=== PATIENT | female | born 1945 | race Caucasian/White ===

== ENCOUNTER 2021-10-26 10:51 | Emergency (ER) | payer MEDICARE, MEDICAID ==
[2021-10-26] MEDS ORDERED: NYSTOP POWDER15 GM TP (11:39)
[2021-10-26] MEDS ORDERED: ATORVASTATIN CA80 MG PO (11:39)
[2021-10-26] MEDS ORDERED: MUPIROCIN2% TP (11:40)
[2021-10-26] MEDS ORDERED: IPRATROPIUM BROM3 M1 IH (11:40)
[2021-10-26] MEDS ORDERED: LASIX 80MG TABL80 MG (11:40)
[2021-10-26] MEDS ORDERED: SYMBICORT1 AE2 IH (11:40)
[2021-10-26] MEDS ORDERED: ATHLETE'S FOOT1% TP (11:40)
[2021-10-26] MEDS ORDERED: METOPROLOL SUCC50 M1 PO (11:41)
[2021-10-26] MEDS ORDERED: GLUCOPHAGE PO (11:41)
[2021-10-26] MEDS ORDERED: SPIRIVA RE2.5 MCG/Ac IH (11:42)
[2021-10-26] MEDS ORDERED: PRILOSEC 20MG20 MG PO (11:42)
[2021-10-26] MEDS ORDERED: PEG335017 GM/Dose PO (11:42)
[2021-10-26] MEDS ORDERED: STIMULANT LAXA1 EACH PO (11:42)
[2021-10-26] MEDS ORDERED: VITAMIN B12 1541 TAB PO (11:42)
[2021-10-26] MEDS ORDERED: ACETAMINOPHEN325 M1 (11:43)
[2021-10-26] MEDS ORDERED: XARELTO20 MG PO (11:43)
[2021-10-26 11:59] LABS: ALBUMIN 4.1 g/dL (3.4-4.8); POTASSIUM 4.2 mmol/L (3.5-5.1)
[2021-10-26 12:00] LABS: CALCIUM 9.7 mg/dL (8.3-10.5)
[2021-10-26 12:02] LABS: TOTAL PROTEIN 7.5 g/dL (6.2-8.1)
[2021-10-26 12:03] LABS: TOTAL BILIRUBIN 1.1 mg/dL (0.2-1.2)
[2021-10-26 12:04] LABS: BASO # 0.05 K/mm3 (0.02-0.10); EOS # 0.15 K/mm3 (0.04-0.40); EOS % 1.6 % (1.0-5.0); HEMOGLOBIN 11.3 g/dL (12.5-16.0); LYMPH# 1.81 K/mm3 (1.50-4.00); MEAN CELL VOLUME 92 fl (78-100); MEAN CORPUSCULAR HEMOGLOBIN 29 pg (27-31); MEAN CORPUSCULAR HGB CONC 31 g/dL (33-37); MEAN PLATELET VOLUME 9.6 fl (7.4-10.4); MONO # 0.49 K/mm3 (0.20-0.80); NEU # 6.62 K/mm3 (1.40-6.50); PLATELET COUNT 425 K/mm3 (130-400); RED BLOOD COUNT 3.91 M/mm3 (4.10-5.30); RED CELL DISTRIBUTION WIDTH 16.8 % (11.5-14.5); WHITE BLOOD COUNT 9.2 K/mm3 (4.8-10.8)
[2021-10-26 12:38] LABS: PH-URINE 7.5 (5.0 - 8.0); URINE APPEARANCE CLOUDY; URINE BILIRUBIN NEGATIVE (NEGATIVE); URINE BLOOD TRACE (NEGATIVE); URINE COLOR LIGHT YELLOW; URINE GLUCOSE NEGATIVE (NEGATIVE); URINE KETONE NEGATIVE (NEGATIVE); URINE LEUKOCYTE ESTERASE 1+ (NEGATIVE); URINE NITRATE NEGATIVE (NEGATIVE); URINE PROTEIN(semi-quant) TRACE (NEGATIVE); URINE UROBILINOGEN NORMAL (NORMAL)
[2021-10-26 15:38] VITALS: BP 112/89
== END 2021-10-26 15:39 | disposition home or self-care (01) ==
LOC: ED 10:51
PROVIDERS: Physician Assistant
DX: B37.49 Other urogenital candidiasis (principal); L03.311 Cellulitis of abdominal wall; Z28.310 Unvaccinated for COVID-19
CPT/HCPCS: J0696; J7040

== ENCOUNTER → 2021-11-02 | Outpatient (CLI) | payer MEDICARE, MEDICAID ==
[~2021-11-02] MED LIST: ACETAMINOPHEN325 M1; ATHLETE'S FOOT1% TP; ATORVASTATIN CA80 MG PO; GLUCOPHAGE PO; IPRATROPIUM BROM3 M1 IH; LASIX 80MG TABL80 MG; METOPROLOL SUCC50 M1 PO; MUPIROCIN2% TP; NYSTOP POWDER15 GM TP; PEG335017 GM/Dose PO; PRILOSEC 20MG20 MG PO; SPIRIVA RE2.5 MCG/Ac IH; STIMULANT LAXA1 EACH PO; SYMBICORT1 AE2 IH; VITAMIN B12 1541 TAB PO; XARELTO20 MG PO
== END ==
LOC: LAB 16:16
DX: K64.4 Residual hemorrhoidal skin tags (principal); Z87.440 Personal history of urinary (tract) infections

== ENCOUNTER → 2022-01-23 | Outpatient (CLI) | payer MEDICARE, MEDICAID | LOC: RAD 10:30 | DX: I50.9 Heart failure, unspecified (principal); Z95.2 Presence of prosthetic heart valve ==

== ENCOUNTER 2022-01-31 15:23 | Observation (INO) | payer MEDICARE, MEDICAID ==
[~2022-01-31] VITALS: Ht 167.6 cm; Wt 100.7 kg
[~2022-01-31 15:23] MED LIST changes: -LASIX 80MG TABL80 MG
[2022-01-31 15:54] LABS: BASO # 0.03 K/mm3 (0.02-0.10); EOS # 0.16 K/mm3 (0.04-0.40); EOS % 1.8 % (1.0-5.0); HEMATOCRIT 35.5 % (37.0-47.0); LYMPH# 1.88 K/mm3 (1.50-4.00); MEAN CELL VOLUME 89 fl (78-100); MEAN CORPUSCULAR HEMOGLOBIN 28 pg (27-31); MEAN CORPUSCULAR HGB CONC 31 g/dL (33-37); NEU # 6.16 K/mm3 (1.40-6.50); PLATELET COUNT 219 K/mm3 (130-400); RED BLOOD COUNT 3.97 M/mm3 (4.10-5.30); RED CELL DISTRIBUTION WIDTH 18.2 % (11.5-14.5); WHITE BLOOD COUNT 8.8 K/mm3 (4.8-10.8)
[2022-01-31 16:05] LABS: ALBUMIN 3.9 g/dL (3.4-4.8); POTASSIUM 4.2 mmol/L (3.5-5.1); SODIUM 144 mmol/L (136-145)
[2022-01-31 16:06] LABS: CALCIUM 9.1 mg/dL (8.3-10.5)
[2022-01-31 16:07] LABS: GLUCOSE 107 mg/dL (65-105)
[2022-01-31 16:08] LABS: TOTAL PROTEIN 7.5 g/dL (6.2-8.1)
[2022-01-31 16:09] LABS: CARBON DIOXIDE 21 mmol/L (23-31); TOTAL BILIRUBIN 0.6 mg/dL (0.2-1.2)
[2022-01-31 16:13] LABS: AST-SGOT 22 U/L (5-34)
[2022-01-31 16:14] LABS: ALT/SGPT 7 U/L (0-55)
[2022-01-31 16:20] LABS: D-DIMER 1.69 mg/L FEU (0.15-0.50); TROPONIN-I < 0.030 ng/mL (<0.030)
[2022-01-31] MEDS ORDERED: LEADER MELATONIN5 MG PO (16:44)
[2022-01-31] MEDS ORDERED: POTASSIUM CH2 MEQ/ML PO (16:46)
[2022-01-31 17:05] LABS: ERYTHROCYTE SEDIMENTATION RATE 69 mm/hr (0-30)
[2022-01-31 17:05] LABS: URINE APPEARANCE HAZY; URINE BILIRUBIN NEGATIVE (NEGATIVE); URINE BLOOD 250 ery/uL (NEGATIVE); URINE COLOR YELLOW; URINE GLUCOSE NEGATIVE (NEGATIVE); URINE KETONE NEGATIVE (NEGATIVE); URINE LEUKOCYTE ESTERASE 2+ (NEGATIVE); URINE NITRATE NEGATIVE (NEGATIVE); URINE PROTEIN(semi-quant) 1+ (NEGATIVE); URINE UROBILINOGEN NORMAL (NORMAL)
[2022-01-31 17:06] LABS: URINE MUCUS PRESENT (NOT PRESENT); URINE WBC >50 /hpf (0-3)
[2022-01-31 18:00] VITALS: BP 113/86
[2022-01-31] MEDS ORDERED: LASIX40 M1 PO (18:14)
[2022-01-31] MEDS ORDERED: LASIX 80MG TABL80 MG PO (18:14)
[2022-01-31 21:48] VITALS: BP 121/50
[2022-02-01 06:19] VITALS: BP 104/50
[2022-02-01 07:05] LABS: BASO # 0.04 K/mm3 (0.02-0.10); EOS # 0.17 K/mm3 (0.04-0.40); EOS % 2.6 % (1.0-5.0); HEMATOCRIT 32.2 % (37.0-47.0); LYMPH# 1.86 K/mm3 (1.50-4.00); MEAN CELL VOLUME 89 fl (78-100); MEAN CORPUSCULAR HEMOGLOBIN 28 pg (27-31); MEAN CORPUSCULAR HGB CONC 31 g/dL (33-37); MEAN PLATELET VOLUME 10.5 fl (7.4-10.4); MONO # 0.44 K/mm3 (0.20-0.80); NEU # 4.12 K/mm3 (1.40-6.50); PLATELET COUNT 239 K/mm3 (130-400); RED BLOOD COUNT 3.61 M/mm3 (4.10-5.30); RED CELL DISTRIBUTION WIDTH 18.2 % (11.5-14.5); WHITE BLOOD COUNT 6.7 K/mm3 (4.8-10.8)
[2022-02-01 07:12] LABS: ALBUMIN 3.5 g/dL (3.4-4.8)
[2022-02-01 07:13] LABS: POTASSIUM 3.8 mmol/L (3.5-5.1); SODIUM 143 mmol/L (136-145)
[2022-02-01 07:14] LABS: CALCIUM 8.8 mg/dL (8.3-10.5)
[2022-02-01 07:15] LABS: GLUCOSE 101 mg/dL (65-105); TOTAL PROTEIN 6.6 g/dL (6.2-8.1)
[2022-02-01 07:16] LABS: CARBON DIOXIDE 24 mmol/L (23-31)
[2022-02-01 07:17] LABS: TOTAL BILIRUBIN 0.7 mg/dL (0.2-1.2)
[2022-02-01 07:20] LABS: AST-SGOT 15 U/L (5-34)
[2022-02-01 07:38] LABS: ALT/SGPT < 6 U/L (0-55)
[2022-02-01 09:20] VITALS: BP 151/74
[2022-02-01] MEDS ORDERED: CEPHALEXIN500 M2 PO (10:23)
== END 2022-02-01 11:38 ==
LOC: ED 15:23 → MED/SURG 17:33
PROVIDERS: ADMIT Physician Assistant
DX: U07.1 COVID-19 (principal); N39.0 Urinary tract infection, site not specified; I48.91 Unspecified atrial fibrillation; I11.0 Hypertensive heart disease with heart failure; J44.9 Chronic obstructive pulmonary disease, unspecified; E11.9 Type 2 diabetes mellitus without complications; Z79.84 Long term (current) use of oral hypoglycemic drugs; Z79.01 Long term (current) use of anticoagulants; Z87.891 Personal history of nicotine dependence; Z91.81 History of falling
CPT/HCPCS: G0378; J0696; J7030; Q9967

== ENCOUNTER → 2022-02-08 | Outpatient (CLI) | payer MEDICARE, MEDICAID ==
[~2022-02-08] MED LIST changes: +CEPHALEXIN500 M2 PO; +LASIX 80MG TABL80 MG PO; +LASIX40 M1 PO; +LEADER MELATONIN5 MG PO; +POTASSIUM CH2 MEQ/ML PO
[2022-02-08 12:56] LABS: BASO # 0.01 K/mm3 (0.02-0.10); EOS # 0.43 K/mm3 (0.04-0.40); EOS % 4.4 % (1.0-5.0); HEMATOCRIT 36.1 % (37.0-47.0); HEMOGLOBIN 11.4 g/dL (12.5-16.0); LYMPH# 1.45 K/mm3 (1.50-4.00); MEAN CELL VOLUME 89 fl (78-100); MEAN CORPUSCULAR HEMOGLOBIN 28 pg (27-31); MEAN CORPUSCULAR HGB CONC 32 g/dL (33-37); MEAN PLATELET VOLUME 10.8 fl (7.4-10.4); MONO # 0.75 K/mm3 (0.20-0.80); NEU # 7.05 K/mm3 (1.40-6.50); PLATELET COUNT 292 K/mm3 (130-400); RED BLOOD COUNT 4.07 M/mm3 (4.10-5.30); RED CELL DISTRIBUTION WIDTH 18.1 % (11.5-14.5); WHITE BLOOD COUNT 9.7 K/mm3 (4.8-10.8)
[2022-02-08 13:15] LABS: POTASSIUM 4.1 mmol/L (3.5-5.1)
[2022-02-08 13:17] LABS: CALCIUM 9.3 mg/dL (8.3-10.5)
[2022-02-08 13:18] LABS: TOTAL PROTEIN 7.5 g/dL (6.2-8.1)
[2022-02-08 13:24] LABS: MAGNESIUM 1.59 mg/dL (1.60-2.60)
[2022-02-08 13:49] LABS: URINE APPEARANCE CLOUDY; URINE BILIRUBIN NEGATIVE (NEGATIVE); URINE BLOOD 250 ery/uL (NEGATIVE); URINE COLOR YELLOW; URINE GLUCOSE NEGATIVE (NEGATIVE); URINE KETONE NEGATIVE (NEGATIVE); URINE LEUKOCYTE ESTERASE 2+ (NEGATIVE); URINE NITRATE NEGATIVE (NEGATIVE); URINE PROTEIN(semi-quant) 1+ (NEGATIVE); URINE UROBILINOGEN NORMAL (NORMAL); URINE WBC 31-50 /hpf (0-3)
== END ==
LOC: LAB 12:10
PROVIDERS: Internal Medicine
DX: U07.1 COVID-19 (principal); K90.9 Intestinal malabsorption, unspecified; N39.0 Urinary tract infection, site not specified; E11.9 Type 2 diabetes mellitus without complications; I87.2 Venous insufficiency (chronic) (peripheral); I11.0 Hypertensive heart disease with heart failure; I50.23 Acute on chronic systolic (congestive) heart failure

== ENCOUNTER → 2022-04-21 | Outpatient (CLI) | payer MEDICARE, MEDICAID ==
[2022-04-21 11:28] LABS: PH-URINE 6.5 (5.0 - 8.0); URINE APPEARANCE CLOUDY; URINE COLOR YELLOW; URINE PROTEIN(semi-quant) TRACE (NEGATIVE)
[2022-04-21 11:29] LABS: URINE BILIRUBIN NEGATIVE (NEGATIVE); URINE BLOOD 50 ery/uL (NEGATIVE); URINE GLUCOSE NEGATIVE (NEGATIVE); URINE KETONE NEGATIVE (NEGATIVE); URINE LEUKOCYTE ESTERASE 1+ (NEGATIVE); URINE MUCUS PRESENT (NOT PRESENT); URINE NITRATE NEGATIVE (NEGATIVE); URINE UROBILINOGEN NORMAL (NORMAL); URINE WBC 31-50 /hpf (0-3)
== END ==
LOC: LAB 10:33
PROVIDERS: Family Medicine
DX: Z87.440 Personal history of urinary (tract) infections (principal)

== ENCOUNTER → 2022-09-06 | Outpatient (CLI) | payer MEDICARE, MEDICAID ==
[2022-09-06 14:54] LABS: PH-URINE 7.5 (5.0 - 8.0); URINE APPEARANCE HAZY; URINE BILIRUBIN NEGATIVE (NEGATIVE); URINE BLOOD 250 ery/uL (NEGATIVE); URINE COLOR YELLOW; URINE GLUCOSE NEGATIVE (NEGATIVE); URINE KETONE NEGATIVE (NEGATIVE); URINE LEUKOCYTE ESTERASE 2+ (NEGATIVE); URINE NITRATE NEGATIVE (NEGATIVE); URINE PROTEIN(semi-quant) 1+ (NEGATIVE); URINE UROBILINOGEN NORMAL (NORMAL); URINE WBC 31-50 /hpf (0-3)
== END ==
LOC: LAB 12:08
PROVIDERS: Internal Medicine
DX: N39.0 Urinary tract infection, site not specified (principal)

== ENCOUNTER → 2023-10-02 | Outpatient (REF) | payer MEDICARE, MEDICAID ==
[2023-10-02 10:47] LABS: URINE APPEARANCE CLOUDY (CLEAR); URINE COLOR YELLOW (YELLOW)
[2023-10-02 10:48] LABS: URINE BILIRUBIN NEGATIVE (NEGATIVE); URINE BLOOD 1+ (NEGATIVE); URINE GLUCOSE NEGATIVE (NEGATIVE); URINE KETONE NEGATIVE (NEGATIVE); URINE LEUKOCYTE ESTERASE 3+ (NEGATIVE); URINE NITRATE NEGATIVE (NEGATIVE); URINE PROTEIN(semi-quant) NEGATIVE (NEGATIVE); URINE WBC >50 /hpf (0-3)
== END ==
LOC: LAB 10:05
PROVIDERS: Internal Medicine
DX: N39.0 Urinary tract infection, site not specified (principal)

== ENCOUNTER → 2023-10-03 | Outpatient (CLI) | payer MEDICARE, MEDICAID | LOC: LAB 13:33 | DX: N90.9 Noninflammatory disorder of vulva and perineum, unspecified (principal) ==

== ENCOUNTER 2024-04-03 12:54 | Emergency (ER) | payer MEDICARE, MEDICAID ==
[~2024-04-03] VITALS: Ht 160 cm; Wt 100.5 kg
[2024-04-03 13:21] LABS: BASO # 0.09 K/mm3 (0.02-0.10); HEMOGLOBIN 8.4 g/dL (12.5-16.0); LYMPH# 1.35 K/mm3 (1.50-4.00); MEAN PLATELET VOLUME 9.8 fl (7.4-10.4); MONO # 0.75 K/mm3 (0.20-0.80); NEU # 7.51 K/mm3 (1.40-6.50); PLATELET COUNT 357 K/mm3 (130-400); RED BLOOD COUNT 3.83 M/mm3 (4.10-5.30); WHITE BLOOD COUNT 9.9 K/mm3 (4.8-10.8)
[2024-04-03 13:26] LABS: CALCIUM 9.8 mg/dL (8.3-10.5)
[2024-04-03 13:27] LABS: TOTAL PROTEIN 7.7 g/dL (6.2-8.1)
[2024-04-03 13:29] LABS: TOTAL BILIRUBIN 0.7 mg/dL (0.2-1.2)
[2024-04-03] MEDS ORDERED: MAGNESIUM OXID400 MG PO (13:29)
[2024-04-03 13:33] LABS: MEAN CORPUSCULAR HEMOGLOBIN 22 pg (27-31); MEAN CORPUSCULAR HGB CONC 28 g/dL (33-37)
[2024-04-03 13:34] LABS: MEAN CELL VOLUME 78 fl (78-100)
[2024-04-03] MEDS ORDERED: Bumetanide 1 MG/4 ML VIAL IV ONE (14:00)
[2024-04-03 14:28] VITALS: BP 115/92
== END 2024-04-03 15:06 | disposition home or self-care (01) ==
LOC: ED 12:54
PROVIDERS: Family Medicine
DX: T14.8XXA Other injury of unspecified body region, initial encounter (principal); I50.9 Heart failure, unspecified; R23.8 Other skin changes; X58.XXXA Exposure to other specified factors, initial encounter

== ENCOUNTER → 2024-04-30 | Outpatient (CLI) | payer MEDICARE, MEDICAID ==
[~2024-04-30] MED LIST changes: +MAGNESIUM OXID400 MG PO
[2024-04-30 16:56] LABS: BASO # 0.07 K/mm3 (0.02-0.10); EOS # 0.25 K/mm3 (0.04-0.40); EOS % 3.5 % (1.0-5.0); HEMATOCRIT 27.5 % (37.0-47.0); HEMOGLOBIN 7.8 g/dL (12.5-16.0); LYMPH# 1.19 K/mm3 (1.50-4.00); MEAN CELL VOLUME 78 fl (78-100); MEAN CORPUSCULAR HEMOGLOBIN 22 pg (27-31); MEAN CORPUSCULAR HGB CONC 28 g/dL (33-37); MEAN PLATELET VOLUME 9.5 fl (7.4-10.4); MONO # 0.44 K/mm3 (0.20-0.80); NEU # 5.12 K/mm3 (1.40-6.50); PLATELET COUNT 345 K/mm3 (130-400); RED CELL DISTRIBUTION WIDTH 21.2 % (11.5-14.5); WHITE BLOOD COUNT 7.1 K/mm3 (4.8-10.8)
[2024-04-30 17:15] LABS: CALCIUM 9.7 mg/dL (8.3-10.5)
[2024-04-30 17:16] LABS: TOTAL PROTEIN 7.4 g/dL (6.2-8.1)
[2024-04-30 17:18] LABS: TOTAL BILIRUBIN 0.6 mg/dL (0.2-1.2)
[2024-04-30 17:46] LABS: RED BLOOD COUNT 3.52 M/mm3 (4.10-5.30)
== END ==
LOC: LAB 16:23
PROVIDERS: Internal Medicine
DX: Z12.11 Encounter for screening for malignant neoplasm of colon (principal); I50.23 Acute on chronic systolic (congestive) heart failure; E78.2 Mixed hyperlipidemia; E11.9 Type 2 diabetes mellitus without complications; K90.9 Intestinal malabsorption, unspecified

== ENCOUNTER → 2024-05-01 | Outpatient (CLI) | payer MEDICARE, MEDICAID ==
[~2024-05-01] VITALS: Ht 167.6 cm; Wt 100.5 kg
[2024-05-01 15:00] VITALS: BP 130/84
== END ==
LOC: WOUND 14:13
DX: S81.801A Unspecified open wound, right lower leg, initial encounter (principal)
CPT/HCPCS: 18896; 18897; A6452

== ENCOUNTER → 2024-05-04 | Outpatient (CLI) | payer MEDICARE, MEDICAID ==
[~2024-05-04] VITALS: Ht 167.6 cm; Wt 100.5 kg
[2024-05-04 14:39] VITALS: BP 124/51
== END ==
LOC: WOUND 14:08
DX: S81.801A Unspecified open wound, right lower leg, initial encounter (principal)
CPT/HCPCS: 18896; 18897; A6452

== ENCOUNTER → 2024-05-06 | Outpatient (CLI) | payer MEDICARE, MEDICAID ==
[~2024-05-06] VITALS: Ht 167.6 cm; Wt 100.5 kg
[2024-05-06 15:23] VITALS: BP 121/74
== END ==
LOC: WOUND 15:07
DX: S81.801A Unspecified open wound, right lower leg, initial encounter (principal)
CPT/HCPCS: 18897

== ENCOUNTER → 2024-06-26 | Outpatient (REF) | payer MEDICARE ==
[2024-06-26 14:31] LABS: URINE APPEARANCE CLOUDY (CLEAR); URINE COLOR YELLOW (YELLOW)
[2024-06-26 14:35] LABS: URINE PROTEIN(semi-quant) 1+ (NEGATIVE)
[2024-06-26 14:36] LABS: URINE BILIRUBIN NEGATIVE (NEGATIVE); URINE BLOOD TRACE-INTACT (NEGATIVE); URINE GLUCOSE NEGATIVE (NEGATIVE); URINE KETONE NEGATIVE (NEGATIVE); URINE LEUKOCYTE ESTERASE 3+ (NEGATIVE); URINE NITRATE NEGATIVE (NEGATIVE); URINE WBC >50 /hpf (0-3)
== END ==
LOC: LAB 14:14
PROVIDERS: Internal Medicine
DX: N39.0 Urinary tract infection, site not specified (principal)